=== PATIENT | male | born 1970 | race Two or more races ===

== ENCOUNTER 2019-11-19 16:07 | Inpatient (IN) | payer OTHER ==
[~2019-11-19] VITALS: Ht 170.2 cm; Wt 77.1 kg
[2019-11-19 16:10] VITALS: BP 154/93
[2019-11-19] MEDS ORDERED: levETIRAcetam 500mg/NS100ml 100 ML IVPB ONE ×2 (16:30→17:45)
[2019-11-19 16:53] LABS: BASOPHILS % (AUTO) 1.1 % (0.0-2.0); EOSINOPHILS % (AUTO) 1.8 % (0.0-3.0); HEMATOCRIT 39.8 % (42.0-52.0); HEMOGLOBIN 13.3 G/DL (14.2-18.0); LYMPHOCYTES % (AUTO) 20.3 % (20.0-45.0); MEAN CORPUSCULAR VOLUME 88 FL (80-99); MONOCYTES % (AUTO) 7.3 % (1.0-10.0); NEUTROPHILS % (AUTO) 69.5 % (45.0-75.0); PLATELET COUNT 121 K/UL (150-450); RED BLOOD COUNT 4.55 M/UL (4.70-6.10); RED CELL DISTRIBUTION WIDTH 12.8 % (11.6-14.8); WHITE BLOOD COUNT 4.1 K/UL (4.8-10.8)
--- NOTE | 2019-11-19 17:00 | Emergency Room Report ---
History of Present Illness General Chief Complaint: Seizure Source: Patient, EMS Present Illness HPI Patient brought in by EMS. He was apparently had a rehab facility and had a seizure that was witnessed. The patient alleges that he had a seizure a week ago and was seen at a hospital but not hospitalized. He is not take any medication for seizure. He states he has diabetes and his blood sugar was high when he was evaluated before. He denies taking insulin at this time. He takes metformin. His Accu-Chek in the field was 524. There is no incontinence. There is also no lingual trauma. The patient did sustain trauma to the right side of his face with the prior seizure. He states he was discharged from [facility] on Saturday. He alleges they told him "nothing was wrong". Also he alleges he tested negative for COVID. Of note they listed his first name as Joao. The patient states that he has not ingested alcohol for 2 years. Prior to that he did drink heavily. Allergies: Coded Allergies: No Known Allergies (Unverified , 11/19/19) COVID-19 Screening Contact w/high risk pt: No Experienced COVID-19 symptoms?: No COVID-19 Testing performed FILER FINISH: No Patient History Past Medical History: see triage record Social History: Denies: smoking, alcohol use - Prior, drug use Social History Narrative From [facility] Reviewed Nursing Documentation: PMH: Agreed; PSxH: Agreed Nursing Documentation-PMH Past Medical History: No History, Except For Hx Diabetes: Yes Hx Seizures: Yes Review of Systems All Other Systems: negative except mentioned in HPI Physical Exam Vital Signs Date Time Temp Pulse Resp B/P (MAP) Pulse Ox O2 Delivery O2 Flow Rate FiO2 11/19/19 15:59 98.1 104 16 154/93 (113) 99 Room Air Sp02 EP Interpretation: reviewed, normal General Appearance: well appearing, no apparent distress, GCS 15, non-toxic Head: normocephalic, other - Abrasions right side of face Eyes: right eye other - Bruising under eye; bilateral eye PERRL, bilateral eye EOMI, bilateral eye Scleral Injection ENT: moist mucus membranes - No lingual macerations, white buildup on tongue Neck: full range of motion, supple, no bony tend Respiratory: chest non-tender, lungs clear, normal breath sounds Cardiovascular #1: regular rate, rhythm Cardiovascular #2: 2+ radial (L) Gastrointestinal: non tender, soft, no mass Genitourinary: no CVA tenderness Musculoskeletal: normal range of motion, digits/nails normal Neurologic: motor strength/tone normal, credit risk review officer III-XII nml as tested, oriented - X2, DTRs symmetric, cerebellar normal, speech normal Psychiatric: mood/affect normal Skin: warm/dry, abrasion - Right sided face Procedures Critical Care Time Critical Care Time Total Critical Care Time: 120 min bedside evaluation and treatment excludes procedures (EKG). Reason for critical care: Hyperglycemia, seizure precautions, intracerebral bleed Possible complications: hypotension, hypertension, CO, shock, arrhythmias, metabolic acidosis, end organ damage, respiratory failure. Interventions: Keppra, repeat evaluations, multiple consultations, isolation, antibiotics Course: Patient presented post seizure. Keppra given. Abnormal CT. COVID-19 positive leading to isolation. Further tests ordered. Fluid bolus for hyperglycemia. Repeat glucose determinations. Insulin administered. Discussed with [facility]. MRI ordered. Multiple discussions with [facility]. Repeat glucose improved. Discussion with patient results. Consultations: nursing staff, EMS, [facility] transfer/neurointensivist/neurosurgeon Performed by: Dr. Worthy Tolerated well condition = serious Medical Decision Making Diagnostic Impression: Primary Impression: Intracerebral hemorrhage Qualified Codes: S06.349A - Traumatic hemorrhage of right cerebrum with loss of consciousness of unspecified duration, initial encounter Additional Impressions: Seizure Hyperglycemia COVID-19 ER Course Patient presents with alleged seizure. Differential includes uncontrolled seizure, syncope, hyperglycemia, electrolyte abnormality, acute myocardial infarction, arrhythmia amongst others. Patient evaluated with EKG, chest x-ray , CT of the head and labs. Patient placed on a telemetry monitor. IV hydration begun for the elevated blood sugar. EKG sinus rhythm LVH. Chest x-ray no infiltrates. Labs significant for low white count. Elevated blood glucose without acidosis. Elevated liver function tests. Called by radiology with abnormal CT with effacement of R frontal lobe sulci. Keppra 500 mg repeated. Repeat glucose after 1st bolus NS 421. Insulin 10 u IV. Contacted by lab COVID +. Placed in isolation. COVID-19 inflammatory markers ordered. Sending CT report to [facility]. Dr. Murphy wants MRI done here. Ordered. 1818 MRI as below. Recall [facility] [address] Murphy. She recommends transfer and also coverage with antibiotics. States patient would be admitted to teaching service with neurosurgical consult. She does not accept the patient. Discussed with Dr. Mcclendon who states he feels this is not a neurosurgical issue. 2199 Refuses the transfer. He believes the blood represents prior trauma and therefore requires no neurosurgical intervention. Amilcar declines the transfer. 2325 Clinically patient is improved. Glucose is greatly improved. No further seizure activity. Patient admitted telemetry. Laboratory Tests Test 11/19/19 16:40 11/19/19 16:48 11/19/19 17:23 White Blood Count 4.1 K/UL (4.8-10.8) L Red Blood Count 4.55 M/UL (4.70-6.10) L Hemoglobin 13.3 G/DL (14.2-18.0) L Hematocrit 39.8 % (42.0-52.0) L Mean Corpuscular Volume 88 FL (80-99) Mean Corpuscular Hemoglobin 29.2 PG (27.0-31.0) Mean Corpuscular Hemoglobin Concent 33.4 G/DL (32.0-36.0) Red Cell Distribution Width 12.8 % (11.6-14.8) Platelet Count 121 K/UL (150-450) L Mean Platelet Volume 6.8 FL (6.5-10.1) Neutrophils (%) (Auto) 69.5 % (45.0-75.0) Lymphocytes (%) (Auto) 20.3 % (20.0-45.0) Monocytes (%) (Auto) 7.3 % (1.0-10.0) Eosinophils (%) (Auto) 1.8 % (0.0-3.0) Basophils (%) (Auto) 1.1 % (0.0-2.0) Sodium Level 134 MMOL/L (136-145) L Potassium Level 4.3 MMOL/L (3.5-5.1) Chloride Level 99 MMOL/L (98-107) Carbon Dioxide Level 25 MMOL/L (21-32) Anion Gap 10 mmol/L (5-15) Blood Urea Nitrogen 11 mg/dL (7-18) Creatinine 0.9 MG/DL (0.55-1.30) Estimated Glomerular Filtration Rate > 60 mL/min (>60) Glucose Level 521 MG/DL (74-106) *H Calcium Level 8.7 MG/DL (8.5-10.1) Ferritin 339 NG/ML (8-388) Total Bilirubin 0.4 MG/DL (0.2-1.0) Aspartate Amino Transferase (AST) 63 U/L (15-37) H Alanine Aminotransferase (ALT) 142 U/L (12-78) H Alkaline Phosphatase 349 U/L (46-116) H Lactate Dehydrogenase 338 U/L (81-234) H Total Creatine Kinase 44 U/L (26-308) Troponin I 0.000 ng/mL (0.000-0.056) C-Reactive Protein, Quantitative 1.9 mg/dL (0.00-0.90) H Total Protein 7.0 G/DL (6.4-8.2) Albumin 3.4 G/DL (3.4-5.0) Globulin 3.6 g/dL Albumin/Globulin Ratio 0.9 (1.0-2.7) L Salicylates Level 0.7 ug/mL (2.8-20) L Acetaminophen Level < 2 MCG/ML (10-30) L Serum Alcohol < 3 mg/dL Urine Color Pale yellow Urine Appearance Clear Urine pH 5 (4.5-8.0) Urine Specific [place] 1.010 (1.005-1.035) Urine Protein Negative (NEGATIVE) Urine Glucose (UA) 4+ (NEGATIVE) H Urine Ketones Negative (NEGATIVE) Urine Blood Negative (NEGATIVE) Urine Nitrite Negative (NEGATIVE) Urine Bilirubin Negative (NEGATIVE) Urine Urobilinogen Normal MG/DL (0.0-1.0) Urine Leukocyte Esterase Negative (NEGATIVE) Urine Opiates Screen Negative (NEGATIVE) Urine Barbiturates Screen Negative (NEGATIVE) Phencyclidine (PCP) Screen Negative (NEGATIVE) Urine Amphetamines Screen Negative (NEGATIVE) Urine Benzodiazepines Screen Negative (NEGATIVE) Urine Cocaine Screen Negative (NEGATIVE) Urine Marijuana (THC) Screen Negative (NEGATIVE) POC Whole Blood Glucose 421 MG/DL (74-106) H Microbiology Date/Time Source Procedure Growth Status 11/19/19 16:55 Nasopharynx SARS-CoV-2 RdRp Gene Assay - Final Complete EKG Diagnostic Results Rate: normal Rhythm: NSR ST Segments: no acute changes Rhythm Strip Diag. Results EP Interpretation: yes Rhythm: NSR, no PVC's, no ectopy Chest X-Ray Diagnostic Results Chest X-Ray Diagnostic Results : Chest X-Ray Ordered: Yes # of Views/Limited/Complete: 1 View Indication: Other EP Interpretation: Yes Interpretation: no effusion, no pneumothorax, other - diffuse interstitial stranding/atelectasis Impression: Other Electronically Signed by: Electronically signed by Aniceto Worthy MD CT/MRI/US Diagnostic Results CT/MRI/US Diagnostic Results #1: Imaging Test Ordered: Head Impression IMPRESSION: Indeterminate mass effect of the high right frontal lobe with loss of marquez- white differentiation suggesting cortical edema, the differential for which may be posttraumatic, ischemic, or underlying mass. Further evaluation with brain MRI with contrast is recommended. No no acute intracranial hemorrhage. CT/MRI/US Diagnostic Results #2: Imaging Test Ordered: MRI head Impression Small subacute right occipital and right frontoparietal extra-axial hemorrhage measuring up to 4 mm with nonspecific adjacent right posterior frontal cortical thickening. Trace associated leptomeningeal enhancement also suspected in this region without evidence of an acute infarction. While nonspecific findings raise concern for small hemorrhage related to an infiltrative right posterior frontal leptomeningeal process. Neurosurgical consultation and follow-up recommended. Last Vital Signs Date Time Temp Pulse Resp B/P (MAP) Pulse Ox O2 Delivery O2 Flow Rate FiO2 11/20/19 02:15 98.0 64 18 124/78 99 Room Air Status: improved Disposition: ADMITTED INPATIENT Condition: Serious Aniceto Worthy MD Nov 19, 2019 17:00
[2019-11-19] MEDS ORDERED: no home meds (17:02)
[2019-11-19 17:09] LABS: APPEARANCE,URINE CLEAR; BILIRUBIN, URINE NEGATIVE (NEGATIVE); COLOR,URINE PALE YELLOW; GLUCOSE, URINE (UA) 4+ (NEGATIVE); KETONES,URINE NEGATIVE (NEGATIVE); LEUKOCYTE ESTERASE ,URINE NEGATIVE (NEGATIVE); NITRITE,URINE NEGATIVE (NEGATIVE); PH,URINE 5 (4.5-8.0); PROTEIN,URINE NEGATIVE (NEGATIVE); UROBILINOGEN,URINE NORMAL MG/DL (0.0-1.0)
[2019-11-19 17:17] LABS: ALANINE AMINOTRANSFERASE 142 U/L (12-78); ALBUMIN 3.4 G/DL (3.4-5.0); ALBUMIN/GLOBULIN RATIO 0.9 (1.0-2.7); ALKALINE PHOSPHATASE 349 U/L (46-116); ANION GAP 10 mmol/L (5-15); ASPARTATE AMINO TRANSFERASE 63 U/L (15-37); BILIRUBIN,TOTAL 0.4 MG/DL (0.2-1.0); BLOOD UREA NITROGEN 11 mg/dL (7-18); CALCIUM 8.7 MG/DL (8.5-10.1); CARBON DIOXIDE 25 MMOL/L (21-32); CHLORIDE 99 MMOL/L (98-107); CREATINE KINASE 44 U/L (26-308); CREATININE 0.9 MG/DL (0.55-1.30); POTASSIUM 4.3 MMOL/L (3.5-5.1); SODIUM 134 MMOL/L (136-145)
--- NOTE | 2019-11-19 17:33 | Diagnostic Imaging Report ---
Indication: Reason For Exam: SZ Technique: Single AP view of the chest. Comparison: None. Findings: The cardiomediastinal silhouette is within normal limits. There are linear opacities in left mid lung as well as the right base. No definite airspace consolidation. Question trace bilateral pleural effusions. No pneumothorax. A calcified granuloma in the left lower lobe. No acute osseous abnormality. Gallstone is noted in the right upper quadrant. IMPRESSION: 1. Bilateral linear opacities likely representing chronic atelectasis or scarring. However, comparison to prior imaging is recommended. 2. Possible trace bilateral pleural effusions.
--- NOTE | 2019-11-19 17:42 | Diagnostic Imaging Report ---
CT HEAD WITHOUT CONTRAST INDICATION: Seizures Technique: Continuous helical CT scanning of the head was performed without intravenous contrast material. Axial and coronal 5 mm sections were generated. Radiation dose was minimized using automated exposure control DOSE: Total Dose Length Product - DLP 921.[address] Dose Index - CTDIvol(s) 53.4 mGy. COMPARISON: None available FINDINGS: In the high right frontal lobe, there is effacement of multiple right frontal sulci, with slightly increased density and loss of marquez-white differentiation. No extra-axial collection identified. No hydrocephalus. No midline shift or cisternal effacement. Visualized mastoid air cells and paranasal sinuses are unremarkable. No calvarial lesions or displaced skull fracture. There is mild right periorbital soft tissue swelling. IMPRESSION: Indeterminate mass effect of the high right frontal lobe with loss of marquez-white differentiation suggesting cortical edema, the differential for which may be posttraumatic, ischemic, or underlying mass. Further evaluation with brain MRI with contrast is recommended. No no acute intracranial hemorrhage. Findings discussed with Dr. Worthy at 1730 on 11/19/[address] scanner at [facility] is accredited by the [employer] and the scans are performed using protocols designed to limit radiation exposure to as low as reasonably achievable to attain images of sufficient resolution adequate for diagnostic evaluation.
[2019-11-19] MEDS ORDERED: Insulin Human Regular 100units/ml 3ml IV ONE (17:45)
[2019-11-19] MEDS ORDERED: Gadavist 7.5mMol/7.5ml vial IV PRN (18:30)
[2019-11-19 19:11] VITALS: BP 153/90
[2019-11-19 21:00] VITALS: BP 138/78
[2019-11-19] MEDS ORDERED: Cefepime HCl 2 GM in D5W 55 ML IVPB ONE (21:45)
[2019-11-19] MEDS ORDERED: Vancomycin 1 GM in NS 275 ML IVPB ONE (21:45)
[2019-11-19 23:00] VITALS: BP 137/79
[2019-11-20] MEDS ORDERED: Miralax 17gm pkt ORAL PRN ×2 (00:30→10:45)
[2019-11-20] MEDS ORDERED: Zolpidem 5mg tab ORAL PRN ×2 (00:30→10:45)
[2019-11-20 01:00] VITALS: BP 124/82
[2019-11-20 04:00] VITALS: BP 138/84
[2019-11-20] MEDS: NovoLOG Insulin Flexpen SUBQ SCH ×4 (06:13→20:30)
[2019-11-20 08:00] VITALS: BP 135/81
[2019-11-20 11:33] LABS: BASOPHILS % (AUTO) 1.1 % (0.0-2.0); EOSINOPHILS % (AUTO) 2.4 % (0.0-3.0); HEMATOCRIT 39.5 % (42.0-52.0); HEMOGLOBIN 12.9 G/DL (14.2-18.0); LYMPHOCYTES % (AUTO) 22.5 % (20.0-45.0); MEAN CORPUSCULAR VOLUME 87 FL (80-99); MONOCYTES % (AUTO) 7.6 % (1.0-10.0); NEUTROPHILS % (AUTO) 66.6 % (45.0-75.0); PLATELET COUNT 131 K/UL (150-450); RED BLOOD COUNT 4.52 M/UL (4.70-6.10); RED CELL DISTRIBUTION WIDTH 12.5 % (11.6-14.8); WHITE BLOOD COUNT 4.2 K/UL (4.8-10.8)
[2019-11-20 11:41] LABS: ALANINE AMINOTRANSFERASE 118 U/L (12-78); ALBUMIN 2.9 G/DL (3.4-5.0); ALBUMIN/GLOBULIN RATIO 0.9 (1.0-2.7); ALKALINE PHOSPHATASE 263 U/L (46-116); ANION GAP 6 mmol/L (5-15); ASPARTATE AMINO TRANSFERASE 60 U/L (15-37); BILIRUBIN,TOTAL 0.2 MG/DL (0.2-1.0); BLOOD UREA NITROGEN 10 mg/dL (7-18); CALCIUM 8.5 MG/DL (8.5-10.1); CARBON DIOXIDE 26 MMOL/L (21-32); CHLORIDE 103 MMOL/L (98-107); CREATININE 0.7 MG/DL (0.55-1.30); POTASSIUM 3.9 MMOL/L (3.5-5.1); SODIUM 135 MMOL/L (136-145)
[2019-11-20 12:00] VITALS: BP 130/78
--- NOTE | 2019-11-20 13:34 | Consultation ---
History of Present Illness General Date patient seen: Nov 20, 2019 Chief Complaint: Seizure Present Illness HPI 49 y/o M with hx of Dm2, former ETOH abuse (quit 2yrs ago) presented to ED on 11/18 after a witnessed seizure at rehab facility. Apparently patient also had a seizure 1 week ago and was seen at a [id number] but not hospitalized. Accu-check in the filed was 524, no incontinence. There was noted R side facial trauma from prior seizure. Allergies: Coded Allergies: No Known Allergies (Unverified , 11/19/19) Medication History Miscellaneous Medications [no home meds], (Reported) Patient History Healthcare decision maker Resuscitation status Advanced Directive on File Patient History Narrative Pmhx: as above Shx: Denies: smoking, alcohol use - Prior, drug use Fhx: non contributory Review of Systems All Other Systems: negative except mentioned in HPI Physical Exam Physical Exam Narrative General Appearance: well appearing, no apparent distress Head: normocephalic, other - Abrasions right side of face Eyes: right eye other - Bruising under eye; bilateral eye PERRL, bilateral eye EOMI, bilateral eye Scleral Injection ENT: moist mucus membranes - No lingual macerations, white buildup on tongue Neck: full range of motion, supple, no bony tend Respiratory: chest non-tender, lungs clear, normal breath sounds Cardiovascular #1: regular rate, rhythm Gastrointestinal: non tender, soft, no mass Last 24 Hour Vital Signs Date Time Temp Pulse Resp B/P (MAP) Pulse Ox O2 Delivery O2 Flow Rate FiO2 11/20/19 12:00 97.9 62 18 130/78 (95) 98 11/20/19 12:00 61 11/20/19 09:00 Room Air 11/20/19 08:00 98.0 69 18 135/81 (99) 98 11/20/19 08:00 75 11/20/19 05:43 Room Air 11/20/19 04:00 58 11/20/19 04:00 98.0 65 17 138/84 (102) 98 11/20/19 02:26 Room Air 11/20/19 02:15 98.0 64 18 124/78 99 Room Air 11/20/19 01:00 98.1 66 16 124/82 99 Room Air 11/19/19 23:00 98.1 64 16 137/79 99 Room Air 11/19/19 21:00 98.0 74 18 138/78 99 Room Air 11/19/19 19:11 98.1 68 16 153/90 99 Room Air 11/19/19 16:10 104 16 Room Air 11/19/19 16:10 98.1 16 154/93 99 Room Air 11/19/19 15:59 98.1 104 16 154/93 (113) 99 Room Air Intake and Output 11/19/19 11/20/19 19:00 07:00 Output Total 500 ml Balance -500 ml Output Urine Total 500 ml # Voids 1 Laboratory Tests Test 11/19/19 16:40 11/19/19 16:48 11/19/19 17:23 11/20/19 05:10 White Blood Count 4.1 K/UL (4.8-10.8) L Red Blood Count 4.55 M/UL (4.70-6.10) L Hemoglobin 13.3 G/DL (14.2-18.0) L Hematocrit 39.8 % (42.0-52.0) L Mean Corpuscular Volume 88 FL (80-99) Mean Corpuscular Hemoglobin 29.2 PG (27.0-31.0) Mean Corpuscular Hemoglobin Concent 33.4 G/DL (32.0-36.0) Red Cell Distribution Width 12.8 % (11.6-14.8) Platelet Count 121 K/UL (150-450) L Mean Platelet Volume 6.8 FL (6.5-10.1) Neutrophils (%) (Auto) 69.5 % (45.0-75.0) Lymphocytes (%) (Auto) 20.3 % (20.0-45.0) Monocytes (%) (Auto) 7.3 % (1.0-10.0) Eosinophils (%) (Auto) 1.8 % (0.0-3.0) Basophils (%) (Auto) 1.1 % (0.0-2.0) Sodium Level 134 MMOL/L (136-145) L Potassium Level 4.3 MMOL/L (3.5-5.1) Chloride Level 99 MMOL/L (98-107) Carbon Dioxide Level 25 MMOL/L (21-32) Anion Gap 10 mmol/L (5-15) Blood Urea Nitrogen 11 mg/dL (7-18) Creatinine 0.9 MG/DL (0.55-1.30) Estimat Glomerular Filtration Rate > 60 mL/min (>60) Glucose Level 521 MG/DL (74-106) *H Calcium Level 8.7 MG/DL (8.5-10.1) Ferritin 339 NG/ML (8-388) Total Bilirubin 0.4 MG/DL (0.2-1.0) Aspartate Amino Transf (AST/SGOT) 63 U/L (15-37) H Alanine Aminotransferase (ALT/SGPT) 142 U/L (12-78) H Alkaline Phosphatase 349 U/L (46-116) H Lactate Dehydrogenase 338 U/L (81-234) H Total Creatine Kinase 44 U/L (26-308) Troponin I 0.000 ng/mL (0.000-0.056) C-Reactive Protein, Quantitative 1.9 mg/dL (0.00-0.90) H Total Protein 7.0 G/DL (6.4-8.2) Albumin 3.4 G/DL (3.4-5.0) Globulin 3.6 g/dL Albumin/Globulin Ratio 0.9 (1.0-2.7) L Salicylates Level 0.7 ug/mL (2.8-20) L Acetaminophen Level < 2 MCG/ML (10-30) L Serum Alcohol < 3 mg/dL Urine Color Pale yellow Urine Appearance Clear Urine pH 5 (4.5-8.0) Urine Specific [place] 1.010 (1.005-1.035) Urine Protein Negative (NEGATIVE) Urine Glucose (UA) 4+ (NEGATIVE) H Urine Ketones Negative (NEGATIVE) Urine Blood Negative (NEGATIVE) Urine Nitrite Negative (NEGATIVE) Urine Bilirubin Negative (NEGATIVE) Urine Urobilinogen Normal MG/DL (0.0-1.0) Urine Leukocyte Esterase Negative (NEGATIVE) Urine Opiates Screen Negative (NEGATIVE) Urine Barbiturates Screen Negative (NEGATIVE) Phencyclidine (PCP) Screen Negative (NEGATIVE) Urine Amphetamines Screen Negative (NEGATIVE) Urine Benzodiazepines Screen Negative (NEGATIVE) Urine Cocaine Screen Negative (NEGATIVE) Urine Marijuana (THC) Screen Negative (NEGATIVE) POC Whole Blood Glucose 421 MG/DL (74-106) H Pending Test 11/20/19 11:15 White Blood Count 4.2 K/UL (4.8-10.8) L Red Blood Count 4.52 M/UL (4.70-6.10) L Hemoglobin 12.9 G/DL (14.2-18.0) L Hematocrit 39.5 % (42.0-52.0) L Mean Corpuscular Volume 87 FL (80-99) Mean Corpuscular Hemoglobin 28.6 PG (27.0-31.0) Mean Corpuscular Hemoglobin Concent 32.7 G/DL (32.0-36.0) Red Cell Distribution Width 12.5 % (11.6-14.8) Platelet Count 131 K/UL (150-450) L Mean Platelet Volume 5.8 FL (6.5-10.1) L Neutrophils (%) (Auto) 66.6 % (45.0-75.0) Lymphocytes (%) (Auto) 22.5 % (20.0-45.0) Monocytes (%) (Auto) 7.6 % (1.0-10.0) Eosinophils (%) (Auto) 2.4 % (0.0-3.0) Basophils (%) (Auto) 1.1 % (0.0-2.0) Sodium Level 135 MMOL/L (136-145) L Potassium Level 3.9 MMOL/L (3.5-5.1) Chloride Level 103 MMOL/L (98-107) Carbon Dioxide Level 26 MMOL/L (21-32) Anion Gap 6 mmol/L (5-15) Blood Urea Nitrogen 10 mg/dL (7-18) Creatinine 0.7 MG/DL (0.55-1.30) Estimat Glomerular Filtration Rate > 60 mL/min (>60) Glucose Level 308 MG/DL (74-106) #H Hemoglobin A1c 12.8 % (4.3-6.0) H Calcium Level 8.5 MG/DL (8.5-10.1) Total Bilirubin 0.2 MG/DL (0.2-1.0) Aspartate Amino Transf (AST/SGOT) 60 U/L (15-37) H Alanine Aminotransferase (ALT/SGPT) 118 U/L (12-78) H Alkaline Phosphatase 263 U/L (46-116) H Total Protein 6.0 G/DL (6.4-8.2) L Albumin 2.9 G/DL (3.4-5.0) L Globulin 3.1 g/dL Albumin/Globulin Ratio 0.9 (1.0-2.7) L Microbiology Date/Time Source Procedure Growth Status 11/19/19 16:55 Nasopharynx SARS-CoV-2 RdRp Gene Assay - Final Complete Height (Feet): 5 Height (Inches): 7.00 Weight (Pounds): 169 Medications Current Medications Medications (Trade) Dose Ordered Sig/Remi Route PRN Reason Start Time Stop Time Status Last Admin Dose Admin Acetaminophen (Tylenol) 650 mg Q4H PRN ORAL fever 11/20/19 10:45 12/20/19 10:44 Dextrose (Dextrose 50%) 25 ml Q30M PRN IV Hypoglycemia 11/20/19 10:45 02/18/20 10:44 Dextrose (Dextrose 50%) 50 ml Q30M PRN IV Hypoglycemia 11/20/19 10:45 02/18/20 10:44 Gadobutrol (Gadavist) 7.5 mmol NOW PRN IV Radiology Procedure 11/19/19 18:30 11/23/19 18:18 Heparin Sodium (Porcine) (Heparin 5000 units/ml) 5,000 units EVERY 12 HOURS SUBQ 11/20/19 21:00 01/04/20 20:59 Insulin Aspart (NovoLOG) BEFORE MEALS AND HS SUBQ 11/20/19 06:30 02/18/20 06:29 11/20/19 11:30 Ondansetron HCl (Zofran) 4 mg Q6H PRN IVP Nausea & Vomiting 11/20/19 10:45 12/20/19 10:44 Polyethylene Glycol (Miralax) 17 gm HSPRN PRN ORAL Constipation 11/20/19 10:45 12/20/19 10:44 Zolpidem Tartrate (Ambien) 5 mg HSPRN PRN ORAL Insomnia 11/20/19 10:45 11/27/19 10:44 Assessment/Plan Assessment/Plan: Abx: IV Vancomycin x1 11/18 Cefepime x1 11/18 Assessment: Confirmed COVID19- at [facility] (asymptomatic) -11/18 CXR: Bilateral linear opacities likely representing chronic atelectasis or scarring. However, comparison to prior imaging is recommended. Possible trace bilateral pleural effusions. Witnessed seizure- ?brain mass -hx of seizure 1 week PHOTO PRINT SPECIALIST -CT head: Indeterminate mass effect of the high right frontal lobe with loss of marquez-white differentiation suggesting cortical edema, the differential for which may be posttraumatic, ischemic, or underlying mass. Further evaluation with brain MRI with contrast is recommended. No no acute intracranial hemorrhage. Afebrile No leukocytosis Dm2 former ETOH abuse (quit 2yrs ago) Plan: -Continue to monitor off abx -If requiring supplemental O2, will consider Remdesevir- at present asymptomatic and at [facility] -f/u cx -Monitor CBC/CMP, temperatures -COVID19 isolation -Brain MRI w/wo Thank you for this consultation. Will continue to follow along with you. Nayely Liu M.D. Nov 20, 2019 13:34
[2019-11-20 16:00] VITALS: BP 136/83
--- NOTE | 2019-11-20 19:30 | History & Physical ---
History and Physical History & Physicial dictation number: [id number] Rob Royal MD Nov 20, 2019 19:30
[2019-11-20 20:00] VITALS: BP 105/72
[2019-11-20] MEDS ORDERED: Heparin 5000 units/ml inj SUBQ SCH (21:00)
--- NOTE | 2019-11-20 22:00 | History and Physical Report ---
DATE OF ADMISSION: 11/19/2019 CHIEF COMPLAINT: Witnessed seizure. HISTORY OF PRESENT ILLNESS: This is a 49-year-old gentleman with past medical history of seizure disorder as well as diabetic who presented to the emergency department after he was noted to have a witnessed seizure at a rehabilitation facility. The patient alleged that he had a seizure a week ago and was seen at the hospital; however, no hospitalization was done. The patient is not taking any medication for seizure. He stated that he is diabetic and his blood glucose level has been running high. He denies taking any insulin at this time, only on metformin. On the field, the patient was noted to have blood glucose level at 524. The patient did have sustained trauma to the right side of his face with prior seizure disorder. The patient was discharged from the [facility] on Saturday. He told nothing was wrong and he was tested COVID negative at that time. Shortly after initial evaluation in the emergency department, the patient was noted to have rapid COVID test positive and admitted to the hospital with acute COVID infection and uncontrolled seizure. PAST MEDICAL HISTORY/PAST SURGICAL HISTORY: As above history of seizure disorder, diabetes type 2. MEDICATIONS: At home, please refer to medication reconciliation, metformin. ALLERGIES: No known drug allergies. SOCIAL HISTORY: The patient ex-alcohol abuse, quit two years ago. Denies any substance abuse. Denies any smoking. FAMILY HISTORY: Noncontributory. REVIEW OF SYSTEMS: Mostly as above. PHYSICAL EXAMINATION: VITAL SIGNS: On admission, temperature 98.1, pulse of 104, respirations 16, and blood pressure 154/93. GENERAL: The patient awake and responsive, no acute distress. HEENT: Head and neck examination, pupils are reactive to light. Extraocular movements are intact. The patient has right facial abrasion. NECK: Supple. No JVD. LUNGS: Good air entry. No wheezing or rales. Decreased air in bases. HEART: S1 and S2. Regular rhythm. No murmur or gallops. ABDOMEN: Soft, nondistended, nontender. Mildly obese. EXTREMITIES: No cyanosis, clubbing, edema NEUROLOGIC: Cranial nerves II through XII grossly normal. Motor is 5/5 in all extremities. Gait was not assessed due to the patient's status. RECTAL/GENITOURINARY: Refused and deferred. PSYCHIATRIC: Mood and affect unable to obtain. LABORATORY AND DIAGNOSTIC DATA: Laboratory on admission WBC of 4.1, hemoglobin 13, hematocrit 39, and platelets is 121. Sodium 134, potassium 4.3, chloride 99, bicarbonate 25, BUN 11, creatinine 0.9, glucose is 521. First troponin 0.00. Total creatine kinase 44. AST of 63, ALT of 142, alkaline phosphatase is 349. Urinalysis +4 glucose. Urine drug screen is negative. Salicylate is 0.7. Acetaminophen is less than 2. Alcohol level is less than 3. The patient had a CT of the head, indeterminate mass effect of the high right frontal lobe with loss of marquez white differentiation suggestive of the cortical edema. The differential for it which may be posttraumatic ischemic or underlying mass. Further evaluation with brain MRI with contrast was recommended. The patient had a chest x-ray, bilateral hilar opacity, likely representing chronic and atelectasis scarring, possible bilateral pleural effusion. MRI of the brain was done, preliminary result shows small subacute right occipital and right frontoparietal and axial hemorrhage measuring up to 4 mm with nonspecific adjacent right posterior frontal cortical thickening, trace association leptomeningeal enhancement also suspected in the region without evidence of acute infarction, which is a nonspecific, finding on right is concerned about the small hemorrhage related to the infiltrate, right posterior frontal leptomeningitis process, corresponding to the CSF sampling may be useful. ASSESSMENT: 1. Witnessed seizure, most likely secondary to the recent head trauma as a result of small subacute right occipital as well as right frontoparietal and extraaxial hemorrhage. 2. COVID-19 infection. 3. Diabetic, uncontrolled. PLAN: Admit the patient to monitored unit. We start the patient on the Keppra 500 mg b.i.d. Followup with the Infectious Diseases consultation with Dr. Liu, Critical Care consultation with Dr. Burnett. Monitor seizure precaution. Code status is Full code. DVT prophylaxis with heparin subcutaneous. We will follow up with the glucose level as well as monitor laboratory in the morning. Rob Royal M.D. DR: Roel JOB#: [id number] CC:
[2019-11-21] VITALS (7 sets, daily range): BP systolic 110–150; BP diastolic 61–100
[2019-11-21] MEDS: NovoLOG Insulin Flexpen SUBQ SCH ×4 (06:14→21:10)
[2019-11-21 07:03] LABS: EOSINOPHILS % (AUTO) 2.8 % (0.0-3.0); HEMATOCRIT 40.5 % (42.0-52.0); HEMOGLOBIN 13.7 G/DL (14.2-18.0); MEAN CORPUSCULAR VOLUME 86 FL (80-99); MONOCYTES % (AUTO) 7.6 % (1.0-10.0); NEUTROPHILS % (AUTO) 61.6 % (45.0-75.0); PLATELET COUNT 145 K/UL (150-450); RED BLOOD COUNT 4.68 M/UL (4.70-6.10); RED CELL DISTRIBUTION WIDTH 12.5 % (11.6-14.8); WHITE BLOOD COUNT 4.7 K/UL (4.8-10.8)
[2019-11-21 07:05] LABS: ALANINE AMINOTRANSFERASE 119 U/L (12-78); ALBUMIN/GLOBULIN RATIO 0.9 (1.0-2.7); ALKALINE PHOSPHATASE 246 U/L (46-116); ANION GAP 8 mmol/L (5-15); ASPARTATE AMINO TRANSFERASE 46 U/L (15-37); BILIRUBIN,TOTAL 0.3 MG/DL (0.2-1.0); BLOOD UREA NITROGEN 7 mg/dL (7-18); CARBON DIOXIDE 28 MMOL/L (21-32); CHLORIDE 105 MMOL/L (98-107); CREATININE 0.6 MG/DL (0.55-1.30); POTASSIUM 3.4 MMOL/L (3.5-5.1); SODIUM 141 MMOL/L (136-145)
[2019-11-21 07:08] LABS: PHOSPHORUS 4.1 MG/DL (2.5-4.9)
--- NOTE | 2019-11-21 13:57 | Internal Med Progress Note ---
Subjective Date of Service: Nov 21, 2019 Physician Name Jarrell Majano Attending Physician Rob Royal MD Current Medications Medications (Trade) Dose Ordered Sig/Remi Route PRN Reason Start Time Stop Time Status Last Admin Dose Admin Acetaminophen (Tylenol) 650 mg Q4H PRN ORAL fever 11/20/19 10:45 12/20/19 10:44 Dextrose (Dextrose 50%) 25 ml Q30M PRN IV Hypoglycemia 11/20/19 10:45 02/18/20 10:44 Dextrose (Dextrose 50%) 50 ml Q30M PRN IV Hypoglycemia 11/20/19 10:45 02/18/20 10:44 Gadobutrol (Gadavist) 7.5 mmol NOW PRN IV Radiology Procedure 11/19/19 18:30 11/23/19 18:18 Insulin Aspart (NovoLOG) BEFORE MEALS AND HS SUBQ 11/20/19 06:30 02/18/20 06:29 11/21/19 11:30 Levetiracetam (Keppra) 500 mg Q12HR ORAL 11/20/19 21:00 01/04/20 20:59 11/21/19 09:31 Ondansetron HCl (Zofran) 4 mg Q6H PRN IVP Nausea & Vomiting 11/20/19 10:45 12/20/19 10:44 Polyethylene Glycol (Miralax) 17 gm HSPRN PRN ORAL Constipation 11/20/19 10:45 12/20/19 10:44 Zolpidem Tartrate (Ambien) 5 mg HSPRN PRN ORAL Insomnia 11/20/19 10:45 11/27/19 10:44 Allergies: Coded Allergies: No Known Allergies (Unverified , 11/19/19) ROS Limited/Unobtainable: No Constitutional: Reports: no symptoms HEENT: Reports: no symptoms Cardiovascular: Reports: no symptoms Respiratory: Reports: no symptoms Gastrointestinal/Abdominal: Reports: no symptoms Genitourinary: Reports: no symptoms Neurologic/Psychiatric: Reports: no symptoms Subjective 49 YO M admitted with seizure. Now intracranial hemorrhage. Cover for Int Mani- Dr Royal Objective Last Vital Signs Date Time Temp Pulse Resp B/P (MAP) Pulse Ox O2 Delivery O2 Flow Rate FiO2 11/21/19 12:00 64 11/21/19 12:00 98.8 18 130/84 (99) 100 11/21/19 09:00 Room Air Laboratory Tests Test 11/20/19 16:44 11/20/19 20:25 11/21/19 04:00 11/21/19 04:10 POC Whole Blood Glucose 295 MG/DL (74-106) H Pending Pending White Blood Count 4.7 K/UL (4.8-10.8) L Red Blood Count 4.68 M/UL (4.70-6.10) L Hemoglobin 13.7 G/DL (14.2-18.0) L Hematocrit 40.5 % (42.0-52.0) L Mean Corpuscular Volume 86 FL (80-99) Mean Corpuscular Hemoglobin 29.3 PG (27.0-31.0) Mean Corpuscular Hemoglobin Concent 33.9 G/DL (32.0-36.0) Red Cell Distribution Width 12.5 % (11.6-14.8) Platelet Count 145 K/UL (150-450) L Mean Platelet Volume 6.0 FL (6.5-10.1) L Neutrophils (%) (Auto) 61.6 % (45.0-75.0) Lymphocytes (%) (Auto) 27.0 % (20.0-45.0) Monocytes (%) (Auto) 7.6 % (1.0-10.0) Eosinophils (%) (Auto) 2.8 % (0.0-3.0) Basophils (%) (Auto) 1.0 % (0.0-2.0) Sodium Level 141 MMOL/L (136-145) Potassium Level 3.4 MMOL/L (3.5-5.1) L Chloride Level 105 MMOL/L (98-107) Carbon Dioxide Level 28 MMOL/L (21-32) Anion Gap 8 mmol/L (5-15) Blood Urea Nitrogen 7 mg/dL (7-18) Creatinine 0.6 MG/DL (0.55-1.30) Estimat Glomerular Filtration Rate > 60 mL/min (>60) Glucose Level 157 MG/DL (74-106) #H Calcium Level 9.0 MG/DL (8.5-10.1) Phosphorus Level 4.1 MG/DL (2.5-4.9) Magnesium Level 1.9 MG/DL (1.8-2.4) Total Bilirubin 0.3 MG/DL (0.2-1.0) Aspartate Amino Transf (AST/SGOT) 46 U/L (15-37) H Alanine Aminotransferase (ALT/SGPT) 119 U/L (12-78) H Alkaline Phosphatase 246 U/L (46-116) H Total Protein 6.2 G/DL (6.4-8.2) L Albumin 3.0 G/DL (3.4-5.0) L Globulin 3.2 g/dL Albumin/Globulin Ratio 0.9 (1.0-2.7) L Test 11/21/19 11:54 POC Whole Blood Glucose 311 MG/DL (74-106) H Microbiology Date/Time Source Procedure Growth Status 11/19/19 16:55 Nasopharynx SARS-CoV-2 RdRp Gene Assay - Final Complete Intake and Output 11/20/19 11/21/19 19:00 07:00 Intake Total 390 ml Balance 390 ml Intake Oral 390 ml # Voids 2 1 Objective PHYSICAL EXAMINATION: GENERAL: The patient awake and responsive, no acute distress. HEENT: Head and neck examination, pupils are reactive to light. Extraocular movements are intact. The patient has right facial abrasion. NECK: Supple. No JVD. LUNGS: Good air entry. No wheezing or rales. Decreased air in bases. HEART: S1 and S2. Regular rhythm. No murmur or gallops. ABDOMEN: Soft, nondistended, nontender. Mildly obese. EXTREMITIES: No cyanosis, clubbing, edema NEUROLOGIC: Cranial nerves II through XII grossly normal. Motor is 5/5 in all extremities. Gait was not assessed due to the patient's status. RECTAL/GENITOURINARY: Refused and deferred. PSYCHIATRIC: Mood and affect unable to obtain. Assessment/Plan Assessment/Plan ASSESSMENT: 1. Witnessed seizure, most likely secondary to the recent head trauma as a result of small subacute right occipital as well as right frontoparietal and extraaxial hemorrhage. 2. COVID-19 infection. 3. Diabetic, uncontrolled. PLAN: 1. Admit the patient to monitored unit. 2. We start the patient on the Keppra 500 mg b.i.d. 3. Infectious Diseases consultation=Dr. Liu 4. Critical Care consultation = Dr. Burnett. 5. seizure precaution 6. Code status is Full code. 7. DVT prophylaxis = heparin subcutaneous. Jarrell Majano MD Nov 21, 2019 13:57
[2019-11-21] MEDS ORDERED: Gadavist 7.5mMol/7.5ml vial IV PRN (18:30)
[2019-11-22] VITALS: BP 118/74
[2019-11-22 04:00] VITALS: BP 127/56
[2019-11-22 05:38] LABS: BASOPHILS % (AUTO) 1.3 % (0.0-2.0); EOSINOPHILS % (AUTO) 2.4 % (0.0-3.0); HEMATOCRIT 42.5 % (42.0-52.0); LYMPHOCYTES % (AUTO) 26.3 % (20.0-45.0); MEAN CORPUSCULAR VOLUME 88 FL (80-99); PLATELET COUNT 150 K/UL (150-450); RED BLOOD COUNT 4.84 M/UL (4.70-6.10); RED CELL DISTRIBUTION WIDTH 12.4 % (11.6-14.8); WHITE BLOOD COUNT 5.5 K/UL (4.8-10.8)
[2019-11-22 05:44] LABS: ANION GAP 8 mmol/L (5-15); BLOOD UREA NITROGEN 16 mg/dL (7-18); CALCIUM 8.9 MG/DL (8.5-10.1); CARBON DIOXIDE 28 MMOL/L (21-32); CHLORIDE 105 MMOL/L (98-107); CREATININE 0.7 MG/DL (0.55-1.30); POTASSIUM 3.5 MMOL/L (3.5-5.1); SODIUM 140 MMOL/L (136-145)
[2019-11-22] MEDS: NovoLOG Insulin Flexpen SUBQ SCH ×4 (06:29→21:29)
[2019-11-22 08:00] VITALS: BP 126/87
--- NOTE | 2019-11-22 10:06 | Infectious Diseases Prog Note ---
Assessment/Plan Abx: IV Vancomycin x1 11/18 Cefepime x1 11/18 Assessment: Confirmed COVID19- at RA (asymptomatic) -11/18 CXR: Bilateral linear opacities likely representing chronic atelectasis or scarring. However, comparison to prior imaging is recommended. Possible trace bilateral pleural effusions. Witnessed seizure- ?brain mass -hx of seizure 1 week [employer] -CT head: Indeterminate mass effect of the high right frontal lobe with loss of marquez-white differentiation suggesting cortical edema, the differential for which may be posttraumatic, ischemic, or underlying mass. Further evaluation with brain MRI with contrast is recommended. No no acute intracranial hemorrhage. Afebrile No leukocytosis Dm2 former ETOH abuse (quit 2yrs ago) Plan: -Continue to monitor off abx -If requiring supplemental O2, will consider Remdesevir- at present asymptomatic and at RA -Monitor CBC/CMP, temperatures -COVID19 isolation -Brain MRI w/wo Thank you for this consultation. Will continue to follow along with you. Subjective Allergies: Coded Allergies: No Known Allergies (Unverified , 11/19/19) Afebrile No Leukocytosis Objective Last 24 Hour Vital Signs Date Time Temp Pulse Resp B/P (MAP) Pulse Ox O2 Delivery O2 Flow Rate FiO2 11/22/19 08:00 97.0 63 18 126/87 (100) 94 11/22/19 04:00 97.9 57 18 127/56 (79) 98 11/22/19 00:00 96.1 64 18 118/74 (89) 95 11/21/19 21:00 Room Air 11/21/19 20:00 97.1 61 18 118/75 (89) 96 11/21/19 18:07 98.1 63 19 150/100 (117) 97 11/21/19 16:00 97.6 71 19 136/61 (86) 96 11/21/19 16:00 68 11/21/19 12:00 64 11/21/19 12:00 98.8 87 18 130/84 (99) 100 Height (Feet): 5 Height (Inches): 7.00 Weight (Pounds): 171 Gen: NAD, On RA HEENT; NCAT, MMM, EOMI, No oral lesions Respiratory: Equal rise and fall, RRR Gastrointestinal: Soft ND Skin: No rash on exposed skin Microbiology Date/Time Source Procedure Growth Status 11/19/19 16:55 Nasopharynx SARS-CoV-2 RdRp Gene Assay - Final Complete Laboratory Tests Test 11/21/19 11:54 11/22/19 04:35 POC Whole Blood Glucose 311 MG/DL (74-106) H White Blood Count 5.5 K/UL (4.8-10.8) Red Blood Count 4.84 M/UL (4.70-6.10) Hemoglobin 14.0 G/DL (14.2-18.0) L Hematocrit 42.5 % (42.0-52.0) Mean Corpuscular Volume 88 FL (80-99) Mean Corpuscular Hemoglobin 28.9 PG (27.0-31.0) Mean Corpuscular Hemoglobin Concent 33.0 G/DL (32.0-36.0) Red Cell Distribution Width 12.4 % (11.6-14.8) Platelet Count 150 K/UL (150-450) Mean Platelet Volume 5.9 FL (6.5-10.1) L Neutrophils (%) (Auto) 63.0 % (45.0-75.0) Lymphocytes (%) (Auto) 26.3 % (20.0-45.0) Monocytes (%) (Auto) 7.0 % (1.0-10.0) Eosinophils (%) (Auto) 2.4 % (0.0-3.0) Basophils (%) (Auto) 1.3 % (0.0-2.0) Sodium Level 140 MMOL/L (136-145) Potassium Level 3.5 MMOL/L (3.5-5.1) Chloride Level 105 MMOL/L (98-107) Carbon Dioxide Level 28 MMOL/L (21-32) Anion Gap 8 mmol/L (5-15) Blood Urea Nitrogen 16 mg/dL (7-18) Creatinine 0.7 MG/DL (0.55-1.30) Estimat Glomerular Filtration Rate > 60 mL/min (>60) Glucose Level 130 MG/DL (74-106) H Calcium Level 8.9 MG/DL (8.5-10.1) Current Medications Medications (Trade) Dose Ordered Sig/Remi Route PRN Reason Start Time Stop Time Status Last Admin Dose Admin Acetaminophen (Tylenol) 650 mg Q4H PRN ORAL fever 11/21/19 18:45 9/6/20 10:44 Dextrose (Dextrose 50%) 25 ml Q30M PRN IV Hypoglycemia 11/21/19 17:45 02/18/20 10:44 Dextrose (Dextrose 50%) 50 ml Q30M PRN IV Hypoglycemia 11/21/19 17:45 02/18/20 10:44 Gadobutrol (Gadavist) 7.5 mmol NOW PRN IV Radiology Procedure 11/21/19 18:30 11/23/19 18:18 Insulin Aspart (NovoLOG) BEFORE MEALS AND HS SUBQ 11/21/19 21:00 02/18/20 06:29 11/21/19 21:10 Levetiracetam (Keppra) 500 mg Q12HR ORAL 11/21/19 21:00 01/04/20 20:59 11/22/19 09:59 Ondansetron HCl (Zofran) 4 mg Q6H PRN IVP Nausea & Vomiting 11/21/19 22:45 12/20/19 10:44 Polyethylene Glycol (Miralax) 17 gm HSPRN PRN ORAL Constipation 11/22/19 10:45 12/20/19 10:44 Zolpidem Tartrate (Ambien) 5 mg HSPRN PRN ORAL Insomnia 11/22/19 10:45 11/27/19 10:44 Aniceto Delatorre MD Nov 22, 2019 10:06
[2019-11-22] MEDS ORDERED: Zolpidem 5mg tab ORAL PRN (10:45)
[2019-11-22] MEDS ORDERED: Miralax 17gm pkt ORAL PRN (10:45)
[2019-11-22 12:00] VITALS: BP 142/82
--- NOTE | 2019-11-22 15:15 | Internal Med Progress Note ---
Subjective Date of Service: Nov 22, 2019 Physician Name Jarrell Majano Attending Physician Rob Royal MD Current Medications Medications (Trade) Dose Ordered Sig/Remi Route PRN Reason Start Time Stop Time Status Last Admin Dose Admin Acetaminophen (Tylenol) 650 mg Q4H PRN ORAL fever 11/21/19 18:45 12/20/19 10:44 Dextrose (Dextrose 50%) 25 ml Q30M PRN IV Hypoglycemia 11/21/19 17:45 02/18/20 10:44 Dextrose (Dextrose 50%) 50 ml Q30M PRN IV Hypoglycemia 11/21/19 17:45 02/18/20 10:44 Gadobutrol (Gadavist) 7.5 mmol NOW PRN IV Radiology Procedure 11/21/19 18:30 11/23/19 18:18 Insulin Aspart (NovoLOG) BEFORE MEALS AND HS SUBQ 11/21/19 21:00 02/18/20 06:29 11/22/19 12:56 Levetiracetam (Keppra) 500 mg Q12HR ORAL 11/21/19 21:00 01/04/20 20:59 11/22/19 09:59 Ondansetron HCl (Zofran) 4 mg Q6H PRN IVP Nausea & Vomiting 11/21/19 22:45 12/20/19 10:44 Polyethylene Glycol (Miralax) 17 gm HSPRN PRN ORAL Constipation 11/22/19 10:45 12/20/19 10:44 Zolpidem Tartrate (Ambien) 5 mg HSPRN PRN ORAL Insomnia 11/22/19 10:45 11/27/19 10:44 Allergies: Coded Allergies: No Known Allergies (Unverified , 11/19/19) ROS Limited/Unobtainable: No Constitutional: Reports: no symptoms HEENT: Reports: no symptoms Cardiovascular: Reports: no symptoms Respiratory: Reports: no symptoms Gastrointestinal/Abdominal: Reports: no symptoms Genitourinary: Reports: no symptoms Neurologic/Psychiatric: Reports: no symptoms Subjective 49 YO M admitted with seizure. Now COVID pos and intracranial hemorrhage. Cover for Int Mani-Dr Royal Objective Last Vital Signs Date Time Temp Pulse Resp B/P (MAP) Pulse Ox O2 Delivery O2 Flow Rate FiO2 11/22/19 12:00 97.8 67 17 142/82 (102) 94 11/22/19 09:00 Room Air Laboratory Tests Test 11/22/19 04:35 White Blood Count 5.5 K/UL (4.8-10.8) Red Blood Count 4.84 M/UL (4.70-6.10) Hemoglobin 14.0 G/DL (14.2-18.0) L Hematocrit 42.5 % (42.0-52.0) Mean Corpuscular Volume 88 FL (80-99) Mean Corpuscular Hemoglobin 28.9 PG (27.0-31.0) Mean Corpuscular Hemoglobin Concent 33.0 G/DL (32.0-36.0) Red Cell Distribution Width 12.4 % (11.6-14.8) Platelet Count 150 K/UL (150-450) Mean Platelet Volume 5.9 FL (6.5-10.1) L Neutrophils (%) (Auto) 63.0 % (45.0-75.0) Lymphocytes (%) (Auto) 26.3 % (20.0-45.0) Monocytes (%) (Auto) 7.0 % (1.0-10.0) Eosinophils (%) (Auto) 2.4 % (0.0-3.0) Basophils (%) (Auto) 1.3 % (0.0-2.0) Sodium Level 140 MMOL/L (136-145) Potassium Level 3.5 MMOL/L (3.5-5.1) Chloride Level 105 MMOL/L (98-107) Carbon Dioxide Level 28 MMOL/L (21-32) Anion Gap 8 mmol/L (5-15) Blood Urea Nitrogen 16 mg/dL (7-18) Creatinine 0.7 MG/DL (0.55-1.30) Estimat Glomerular Filtration Rate > 60 mL/min (>60) Glucose Level 130 MG/DL (74-106) H Calcium Level 8.9 MG/DL (8.5-10.1) Microbiology Date/Time Source Procedure Growth Status 11/19/19 16:55 Nasopharynx SARS-CoV-2 RdRp Gene Assay - Final Complete Intake and Output 11/21/19 11/22/19 19:00 07:00 Intake Total 320 ml 120 ml Balance 320 ml 120 ml Intake Oral 320 ml 120 ml # Voids 2 3 Objective PHYSICAL EXAMINATION: GENERAL: The patient awake and responsive, no acute distress. HEENT: Head and neck examination, pupils are reactive to light. Extraocular movements are intact. The patient has right facial abrasion. NECK: Supple. No JVD. LUNGS: Good air entry. No wheezing or rales. Decreased air in bases. HEART: S1 and S2. Regular rhythm. No murmur or gallops. ABDOMEN: Soft, nondistended, nontender. Mildly obese. EXTREMITIES: No cyanosis, clubbing, edema NEUROLOGIC: Cranial nerves II through XII grossly normal. Motor is 5/5 in all extremities. Gait was not assessed due to the patient's status. RECTAL/GENITOURINARY: Refused and deferred. PSYCHIATRIC: Mood and affect unable to obtain. Assessment/Plan Assessment/Plan ASSESSMENT: 1. Witnessed seizure, most likely secondary to the recent head trauma as a result of small subacute right occipital as well as right frontoparietal and extraaxial hemorrhage. 2. COVID-19 infection. 3. Diabetic, uncontrolled. PLAN: 1. Admit the patient to monitored unit. 2. We start the patient on the Keppra 500 mg b.i.d. 3. Infectious Diseases consultation=Dr. Liu 4. Critical Care consultation = Dr. Burnett. 5. seizure precaution 6. Code status is Full code. 7. DVT prophylaxis = heparin subcutaneous. Jarrell Majano MD Nov 22, 2019 15:15
[2019-11-22 16:00] VITALS: BP 118/68
[2019-11-22 20:00] VITALS: BP 135/79
[2019-11-23] VITALS: BP 131/90
[2019-11-23 04:00] VITALS: BP 121/79
[2019-11-23 05:15] LABS: BASOPHILS % (AUTO) 1.9 % (0.0-2.0); EOSINOPHILS % (AUTO) 3.1 % (0.0-3.0); HEMATOCRIT 42.6 % (42.0-52.0); HEMOGLOBIN 13.7 G/DL (14.2-18.0); MEAN CORPUSCULAR VOLUME 89 FL (80-99); MONOCYTES % (AUTO) 7.6 % (1.0-10.0); NEUTROPHILS % (AUTO) 61.3 % (45.0-75.0); PLATELET COUNT 157 K/UL (150-450); RED CELL DISTRIBUTION WIDTH 12.4 % (11.6-14.8); WHITE BLOOD COUNT 4.7 K/UL (4.8-10.8)
[2019-11-23 05:53] LABS: ANION GAP 7 mmol/L (5-15); BLOOD UREA NITROGEN 15 mg/dL (7-18); CALCIUM 8.9 MG/DL (8.5-10.1); CARBON DIOXIDE 27 MMOL/L (21-32); CHLORIDE 106 MMOL/L (98-107); CREATININE 0.6 MG/DL (0.55-1.30); POTASSIUM 3.8 MMOL/L (3.5-5.1); SODIUM 140 MMOL/L (136-145)
[2019-11-23] MEDS: NovoLOG Insulin Flexpen SUBQ SCH ×2 (06:47→12:41)
[2019-11-23] MEDS: metFORMIN 500mg tab ORAL SCH ×2 (06:47→12:41)
[2019-11-23 08:00] VITALS: BP 116/80
[2019-11-23] MEDS ORDERED: Levemir Flexpen SUBQ SCH (09:00)
--- NOTE | 2019-11-23 10:09 | Infectious Diseases Prog Note ---
Assessment/Plan Confirmed COVID19, on RA (asymptomatic) -11/18 CXR: Bilateral linear opacities likely representing chronic atelectasis or scarring. However, comparison to prior imaging is recommended. Possible trace bilateral pleural effusions. Witnessed seizure- ?brain mass -hx of seizure 1 week [employer] -CT head: Indeterminate mass effect of the high right frontal lobe with loss of marquez-white differentiation suggesting cortical edema, the differential for which may be posttraumatic, ischemic, or underlying mass. Further evaluation with brain MRI with contrast is recommended. No no acute intracranial hemorrhage. Afebrile No leukocytosis DM2 Former ETOH abuse (quit 2yrs ago) Plan: Continue to monitor off abx F/u Brain MRI If requiring supplemental O2, will start steroids and consider Remdesevir given COVID+, but at present asymptomatic and on RA Monitor CBC/CMP, temperatures COVID19 isolation Thank you for this consultation. Will continue to follow along with you. Subjective Allergies: Coded Allergies: No Known Allergies (Unverified , 11/19/19) AF Laying in bed on RA No complaints Objective Last 24 Hour Vital Signs Date Time Temp Pulse Resp B/P (MAP) Pulse Ox O2 Delivery O2 Flow Rate FiO2 11/23/19 08:00 97.3 62 18 116/80 (92) 95 11/23/19 04:00 97.9 62 18 121/79 (93) 95 11/23/19 00:00 97.7 72 18 131/90 (104) 97 11/22/19 21:00 Room Air 11/22/19 20:00 97.9 57 16 135/79 (97) 96 11/22/19 16:00 97.3 64 18 118/68 (85) 94 11/22/19 12:00 97.8 67 17 142/82 (102) 94 Height (Feet): 5 Height (Inches): 7.00 Weight (Pounds): 170 Gen: NAD on RA Pulm: BL chest rise on RA Abd; Soft, NTND Ext: No c/c/e Neuro: Awake, alert, interactive Laboratory Tests Test 11/23/19 04:15 White Blood Count 4.7 K/UL (4.8-10.8) L Red Blood Count 4.80 M/UL (4.70-6.10) Hemoglobin 13.7 G/DL (14.2-18.0) L Hematocrit 42.6 % (42.0-52.0) Mean Corpuscular Volume 89 FL (80-99) Mean Corpuscular Hemoglobin 28.6 PG (27.0-31.0) Mean Corpuscular Hemoglobin Concent 32.2 G/DL (32.0-36.0) Red Cell Distribution Width 12.4 % (11.6-14.8) Platelet Count 157 K/UL (150-450) Mean Platelet Volume 6.0 FL (6.5-10.1) L Neutrophils (%) (Auto) 61.3 % (45.0-75.0) Lymphocytes (%) (Auto) 26.0 % (20.0-45.0) Monocytes (%) (Auto) 7.6 % (1.0-10.0) Eosinophils (%) (Auto) 3.1 % (0.0-3.0) H Basophils (%) (Auto) 1.9 % (0.0-2.0) Sodium Level 140 MMOL/L (136-145) Potassium Level 3.8 MMOL/L (3.5-5.1) Chloride Level 106 MMOL/L (98-107) Carbon Dioxide Level 27 MMOL/L (21-32) Anion Gap 7 mmol/L (5-15) Blood Urea Nitrogen 15 mg/dL (7-18) Creatinine 0.6 MG/DL (0.55-1.30) Estimat Glomerular Filtration Rate > 60 mL/min (>60) Glucose Level 274 MG/DL (74-106) #H Calcium Level 8.9 MG/DL (8.5-10.1) Current Medications Medications (Trade) Dose Ordered Sig/Remi Route PRN Reason Start Time Stop Time Status Last Admin Dose Admin Acetaminophen (Tylenol) 650 mg Q4H PRN ORAL fever 11/21/19 18:45 12/20/19 10:44 Dextrose (Dextrose 50%) 25 ml Q30M PRN IV Hypoglycemia 11/23/19 06:45 02/21/20 06:44 Dextrose (Dextrose 50%) 50 ml Q30M PRN IV Hypoglycemia 11/23/19 06:45 02/21/20 06:44 Gadobutrol (Gadavist) 7.5 mmol NOW PRN IV Radiology Procedure 11/21/19 18:30 11/23/19 18:18 Insulin Aspart (NovoLOG) BEFORE MEALS AND HS SUBQ 11/21/19 21:00 02/18/20 06:29 11/23/19 06:47 Insulin Detemir (Levemir) 10 units DAILY SUBQ 11/23/19 09:00 02/21/20 08:59 11/23/19 08:18 Levetiracetam (Keppra) 500 mg Q12HR ORAL 11/21/19 21:00 01/04/20 20:59 11/23/19 08:15 Metformin HCl (Glucophage) 500 mg TIAC ORAL 11/23/19 06:45 12/23/19 06:44 11/23/19 06:47 Ondansetron HCl (Zofran) 4 mg Q6H PRN IVP Nausea & Vomiting 11/21/19 22:45 12/20/19 10:44 Polyethylene Glycol (Miralax) 17 gm HSPRN PRN ORAL Constipation 11/22/19 10:45 12/20/19 10:44 Zolpidem Tartrate (Ambien) 5 mg HSPRN PRN ORAL Insomnia 11/22/19 10:45 11/27/19 10:44 Vee Crane M.D. Nov 23, 2019 10:09
[2019-11-23 12:00] VITALS: BP 118/72
--- NOTE | 2019-11-23 12:45 | Consultation ---
DATE OF CONSULTATION: 11/23/2019 ENDOCRINOLOGY CONSULTATION CONSULTING PHYSICIAN: Ray Quezada MD. REFERRING PHYSICIAN: Rob Royal MD. REASON FOR CONSULTATION: Diabetes management. HISTORY OF PRESENT ILLNESS: The patient is a 49-year-old male with past medical history of seizure disorder and diabetes, who presented to the emergency department after witnessed seizure at the rehab facility. The patient's glucose is elevated, therefore Endocrinology was consulted. Also, the rapid test was positive and admitted to the hospital with COVID infection and uncontrolled seizure. PAST MEDICAL HISTORY: 1. Seizure disorder. 2. Type 2 diabetes. MEDICATIONS: Reviewed and reconciled. ALLERGIES TO MEDICATIONS: None. SOCIAL HISTORY: Previous alcohol abuse, quit 2 years ago. No smoking or drug use. FAMILY HISTORY: Noncontributory. REVIEW OF SYSTEMS: As per HPI. PHYSICAL EXAMINATION: Deferred due to COVID infection. LABORATORY DATA: Sodium 140, potassium 3.8, chloride 106, bicarb 27, BUN 15, creatinine 0.6, glucose of 274. A1c of 12.8. DIAGNOSES: 1. COVID infection. 2. Seizure disorder. 3. Diabetes, out of control. PLAN: 1. Add Levemir 10 units daily. 2. Metformin 500 mg daily. 3. NovoLog sliding scale before meals and at bedtime. 4. Hypoglycemia protocol is in order. 5. Further adjustment according to blood glucose values. Thank you, Dr. Royal for the courtesy of this consultation. Ray Quezada M.D. DR: Hood JOB#: [id number] CC:
[2019-11-23] MEDS ORDERED: METFORMIN HCL1000 M1 ORAL ×2 (14:40→14:41)
[2019-11-23] MEDS ORDERED: KEPPRA500 MG ORAL (15:15)
[2019-11-23] MEDS ORDERED: LEVEMIR FL100 UNIT/1 SUBQ (15:15)
--- NOTE | 2019-11-24 09:04 | Discharge Summary ---
Discharge Summary Discharge Summary _ DATE OF ADMISSION: 11/19/2019 DATE OF DISCHARGE: 11/23/2019 DISCHARGED BY: Dr. Royal REASON FOR ADMISSION: 49 years old male with past medical history of seizure disorder, diabetes mellitus type 2, presented to emergency department after noted a witnessed seizure episode. Patient apparently had a seizure a week ago and was seen in the hospital , however no hospitalization was arranged at that time. Patient was tested COVID negative at that time. Patient was not on any medication for seizure. Patient reported running that his blood sugar was running high. Patient was taking metformin at home Upon evaluation blood sugar was 521 with normal anion gap. Patient also sustained trauma to the right side of his face with prior seizure episode. Shortly after initial evaluation emergency department rapid call with test was positive patient admitted to the hospital with acute COVID infection and uncontrolled seizures CT of the head revealed indeterminate mass effect of the high right frontal lobe with loss of marquez-white differentiation suggesting cortical edema, the differential for which may be posttraumatic, ischemic, or underlying mass. Further evaluation with brain MRI with contrast was recommended. No acute intracranial hemorrhage. Patient subsequently admitted for further management. CONSULTANTS: ID specialist Dr. Liu math teacher [facility]SE: Patient admitted to monitored floor to isolation room. Seizure precaution maintained. Patient started on Keppra. ID specialist followed. Patient remained afebrile , no leukocytosis. Chest x-ray revealed bilateral linear opacity, likely representing chronic atelectasis or scaring. Pulse oximetry remained stable on room air, no respiratory distress. ID specialist recommended to monitor patient off antibiotics. Possible trace bilateral pleural effusion. No evidence of infiltrate or consolidation. Blood sugar was managed as per math teacher recommendation with long-acting Levemir , metformin and sliding scale of insulin as needed. Hypoglycemia protocol was in order. Hemoglobin A1c 12.8. Diabetic diet and diabetic teaching provided. Patient will need further optimization of anti-glycemic regimen as outpatient. DVT prophylaxis provided. Supportive care provided. Patient clinically stabilized: blood sugar stable, no further seizure activities. Patient was stable for discharge home with outpatient follow-up with a primary care provider . Patient recommended to follow-up with MRI of the brain as outpatient. FINAL DIAGNOSES: Witnessed seizure episode , most likely secondary to recent head trauma as result of small subacute right occipital as well as the right frontoparietal and extra-axial hemorrhage Confirmed COVID-19 infection Diabetes mellitus [id number] History of ETOH abuse DISCHARGE MEDICATIONS: See Medication Reconciliation list. DISCHARGE INSTRUCTIONS: Patient was discharged home . Follow-up with a primary care provider in 1 week. I have been assigned to dictate discharge summary for this account. I was not involved in the patient's management. Shasha Alcantar NP Nov 24, 2019 09:04
== END 2019-11-23 15:44 | disposition home or self-care (01) | DRG 53 ==
LOC: EDBD 16:07 → EMR 16:20 → 2E 23:30 → EDBEDREQ 11-20 00:15 → 4E 11-21 17:32
DX: R56.1 Post traumatic seizures (principal); U07.1 COVID-19; S06.34 Traumatic hemorrhage of right cerebrum; W19.XXXS Unspecified fall, sequela; E11.65 Type 2 diabetes mellitus with hyperglycemia; F10.11 Alcohol abuse, in remission; Z79.84 Long term (current) use of oral hypoglycemic drugs
CPT/HCPCS: 36415; 70450; 70552; 71045; 80048; 80053; 80307; 81003; 82550; 82728; 82962; 83036; 83615; 83735; 84100; 84484; 85025; 86140; 93005; 96361; 96365; 96368; 96375; 96376; 99291; 99292; A9585; G0480; J1815; J7030; S5561; U0002